=== PATIENT | female | born 1965 | race Two or more races ===

== ENCOUNTER 2020-04-23 09:50 | Emergency (ER) | payer MEDICAID ==
[~2020-04-23] VITALS: Ht 160 cm; Wt 72.1 kg
--- NOTE | 2020-04-23 10:15 | NUR ---
"Abdominal Pain Had surgery recently. Pain mostly on lower abdomen" Patient a/ox4, breathing even and unlabored, no sob noted. Needs attended, kept comfortable.
[2020-04-23] MEDS ORDERED: MORPHINE SULFATE INJ 4 MG/ML DISP.SYRIN ONE (10:57)
[2020-04-23] MEDS ORDERED: ONDANSETRON HCL/PF 4 MG/2 ML VIAL ONE (10:57)
[2020-04-23 10:59] LABS: BASOPHILS % (AUTO) 0.5 % (0.0-2.0); EOSINOPHILS % (AUTO) 5.4 % (0.0-6.0); HEMATOCRIT 34 % (33-45); HEMOGLOBIN 11.4 g/dL (11.5-14.8); LYMPHOCYTES # (AUTO) 2.1 /CMM (0.8-4.8); LYMPHOCYTES % (AUTO) 31.6 % (20.0-44.0); MEAN CORPUSCULAR HGB CONC 33 g/dl (31.0-36.0); MEAN CORPUSCULAR VOLUME 94 fL (82-100); MONOCYTES # (AUTO) 0.6 /CMM (0.1-1.30); MONOCYTES % (AUTO) 9.6 % (2.0-12.0); NEUTROPHILS # (AUTO) 3.5 /CMM (1.8-8.9); NEUTROPHILS % (AUTO) 52.9 % (43.0-81.0); PLATELET COUNT (AUTO) 354 /CMM (150-450); RED BLOOD CELL COUNT(AUTO) 3.63 MIL/uL (4.0-5.2); WHITE BLOOD COUNT (AUTO) 6.6 K/uL (4.3-11.0)
[2020-04-23] MEDS ORDERED: ONDANSETRON HCL/PF 4 MG/2 ML VIAL IVP ONE (11:00)
[2020-04-23] MEDS ORDERED: MORPHINE SULFATE INJ 2 MG/ML DISP.SYRIN IV ONE (11:00)
[2020-04-23] MEDS ORDERED: KETOROLAC TROMETHAMINE 15 MG/ML VIAL ONE (11:02)
[2020-04-23 11:11] LABS: CALCIUM, SERUM 9.4 mg/dL (8.5-10.1); CARBON DIOXIDE 30 mmol/L (21-32); CHLORIDE 103 mmol/L (98-107); CREATININE 0.7 mg/dL (0.6-1.3); GLUCOSE 95 mg/dL (74-106); POTASSIUM 3.6 mmol/L (3.5-5.1); SODIUM SERUM 142 mmol/L (136-145); UREA NITROGEN, BLOOD 10 mg/dL (7-18)
[2020-04-23 11:17] LABS: ALANINE AMINOTRANSFERASE 196 U/L (12-78); ALBUMIN 3.9 g/dL (3.4-5.0); ALKALINE PHOSPHATASE 92 U/L (46-116); ASPARTATE AMINOTRANSFERASE 76 U/L (15-37); BILIRUBIN,DIRECT 0.1 mg/dL (0.0-0.2); BILIRUBIN,TOTAL 0.2 mg/dL (0.2-1.0); LIPASE 155 U/L (73-393); TOTAL PROTEIN, SERUM 7.6 g/dL (6.4-8.2)
[2020-04-23] MEDS ORDERED: IV NS 0.9% 250 ML IV ONE (11:25)
[2020-04-23] MEDS ORDERED: IOHEXOL-300 100 ML VIAL IV ONE (11:25)
[2020-04-23] MEDS ORDERED: KETOROLAC TROMETHAMINE INJ 30 MG/ML VIAL IV ONE (11:30)
[2020-04-23 11:32] LABS: BILIRUBIN,URINE NEGATIVE (NEGATIVE); BLOOD, URINE MODERATE Ery/uL (NEGATIVE); LEUKOCYTE ESTERASE ,URINE LARGE (NEGATIVE); NITRITE, URINE NEGATIVE (NEGATIVE); PH,URINE 6.5 (5.0-8.0); PROTEIN,URINE NEGATIVE (NEGATIVE); UGLUCOSE NEGATIVE (NEGATIVE); UROBILINOGEN,URINE 0.2 EU/dL (0.2)
[2020-04-23 11:37] LABS: COLOR,URINE STRAW (YELLOW)
[2020-04-23] MEDS ORDERED: CEFTRIAXONE 1GM BAG (ER ONLY) 50 ML IV ONE (12:25)
[2020-04-23] MEDS ORDERED: CEFTRIAXONE 1GM BAG (ER ONLY) 1 GM/50 ML PIGGYBACK IV ONE (12:30)
[2020-04-23 12:34] LABS: WBC,URINE 81-100 /HPF (0-3)
[2020-04-23 12:35] LABS: BACTERIA,URINE Moderate /HPF (None Seen); SQUAMOUS EPITHELIAL CELL,UR Few /HPF (None Seen)
--- NOTE | 2020-04-23 12:39 | NUR ---
Patient a/ox4, breathing even and unlabored, translation done by Security. Discharge instructions provided. IV removed. Catheter intact and site benign. Pressure and 4x4 applied to site. No bleeding noted.Patient discharged to home in stable condition. Written and verbal after care instructions given. Patient verbalizes understanding of instruction.
[2020-04-23 12:41] VITALS: BP 117/79
== END 2020-04-23 12:41 | disposition home or self-care (01) ==
LOC: ER 09:55
DX: N39.0 Urinary tract infection, site not specified (principal); I10 Essential (primary) hypertension; Z98.890 Other specified postprocedural states
CPT/HCPCS: 36415; 74177; 80048; 80076; 81001; 83690; 84484; 84703; 85025; 87086; 96365; 96375; 99285; J0696; J1885; J2270; J2405; J7050; Q9967